=== PATIENT | male | born 1955 | race Caucasian/White ===

== ENCOUNTER 2023-03-14 11:45 | Day surgery (SDC) | payer MEDICARE, OTHER ==
[2023-03-13 11:05] VITALS: BMI 27.8
[2023-03-14] MEDS ORDERED: Ketorolac Tromethamine 30 MG/ML VIAL ONE (12:45)
[2023-03-14] MEDS ORDERED: Gabapentin 300 MG CAP ONE (12:46)
[2023-03-14] MEDS ORDERED: Acetaminophen 325 MG TAB ONE (12:46)
[2023-03-14 13:25] LABS: Hemoglobin 10.5 g/dL (13.5-17.5); Mean Corpuscular HGB CONC 29.2 g/dL (32.0-36.0); Mean Corpuscular Hemoglobin 25.7 pg (27.0-33.0); Mean Platelet Volume 9.3 fl (7.4-10.4); Platelet Count 431 10x3/uL (150-450); RBC Distribution Width 23.7 % (11.5-14.5); Red Blood Cell (RBC) Count 4.09 10x6/uL (4.32-5.72); White Blood Cell (WBC) Count 11.5 10x3/uL (3.5-10.5)
[2023-03-14] MEDS ORDERED: EPINEPHrine 1 MG/ML AMP ONE (14:40)
[2023-03-14] MEDS ORDERED: Bupivacaine PF 0.5% 30 ML VIAL ONE (14:40)
[2023-03-14] MEDS ORDERED: PROPOFOL 20 ML ONE (15:35)
[2023-03-14] MEDS ORDERED: fentaNYL 50 mcg/mL 1 mL Vial ONE (15:35)
[2023-03-14] MEDS ORDERED: Ondansetron PF 4 MG/2 ML Vial ONE (15:40)
[2023-03-14] MEDS ORDERED: Lidocaine 1% PF 5 ML VIAL ONE (15:40)
[2023-03-14] MEDS ORDERED: PHENYLEPHRINE-NS 100 MCG/ML 10 ML SYRINGE ONE (15:51)
[2023-03-14] MEDS ORDERED: Vancomycin 1 GM VIAL ONE (16:02)
== END 2023-03-14 17:45 | disposition home or self-care (01) ==
LOC: CSHSDC 11:45
PROVIDERS: ATTEND Orthopaedic Surgery
PROC: 0S9C0ZZ Drainage of Right Knee Joint, Open Approach (ICD-10-PCS; principal; 2023-03-14)
DX: S81.001A Unspecified open wound, right knee, initial encounter (principal); Z96.651 Presence of right artificial knee joint; X58.XXXA Exposure to other specified factors, initial encounter
CPT/HCPCS: 27310; 85027; 86140; 87070; 87075; 87102; 87116; 87205; 87206 ×2; J3010; 36415; 87077; 87186; A6197; J0171; J1885; J2405; J2704; J3370; S0020